=== PATIENT | female | born 1995 ===

== ENCOUNTER 2017-01-30 09:55 | Observation (INO) | payer MEDICAID ==
[2017-01-30 10:03] VITALS: BP 135/107; PULSE 118; RESP 18; TEMP 97.9; O2SAT 97
[2017-01-30 13:12] LABS: % IMMATURE GRANULYOCYTES 0.3 % (0.0-1.1); ABSOLUTE IMMATURE GRANULOCYTES 0.03 10^3/uL (0.00-0.10); ADD DIFF? NO; ADD MORPH? NO; ADD SCAN? NO; ATYPICAL LYMPHOCYTE FLAG 10 (0-99); FRAGMENT RBC FLAG 0 (0-99); HEMATOCRIT 31.7 % (38.0-47.0); HEMOGLOBIN 10.5 g/dL (12.6-16.3); LEFT SHIFT FLG 0 (0-99); LIPEMIA HEMOLYSIS FLAG 80 (0-99); MEAN CELL HEMOGLOBIN 26.5 pg (27.9-34.1); MEAN CELL HEMOGLOBIN CONCENTR. 33.1 g/dL (32.4-36.7); MEAN CELL VOLUME 80.1 fL (81.5-99.8); PLATELET CLUMPS FLAG 0 (0-99); PLATELET COUNT 251 10^3/uL (150-400); RED BLOOD CELL COUNT 3.96 10^6/uL (4.18-5.33); RED CELL DISTRIBUTION WIDTH 15.6 % (11.5-15.2)
[2017-01-30 13:22] LABS: COLOR YELLOW; LEUKOCYTE ESTERASE,URINE 1+ (NEGATIVE); NITRITE,URINE POSITIVE (NEGATIVE)
[2017-01-30 13:27] LABS: BACTERIA 2+ /hpf (NONE SEEN); MUCUS 1+ /lpf (NONE-1+); RBC,URINE 15-25 /hpf (0-3); WBC,URINE 50-182 /hpf (0-3)
[2017-01-30] MEDS ORDERED: ACETAMINOPHEN 500 MG TAB PO ONE (13:30)
[2017-01-30] MEDS ORDERED: NITROFURANTOIN MACROBID 100 MG CAP PO SCH ×2 (13:30→21:00)
--- NOTE | 2017-01-30 14:16 | GHP ---
DATE OF ADMISSION: 01/30/2017 ADMITTING DIAGNOSES: 1. Intrauterine at 37 and 3/7 weeks. 2. No care in this . 3. Right lower quadrant pain. 4. Urinary tract infection. HISTORY OF PRESENT ILLNESS: The patient is a 21-year-old, 3, para 2-0-0 -2 with a ? LMP of 05/13/2016, with an estimated due date of 02/17/2017 at 37 weeks and 3 days. The patient has no care, but did present to the emergency room today with complaints of worsening right lower quadrant pain, as well as a foul odor when she urinates, urinary frequency and urgency. She has no control of her bladder. Denies any dysuria, denies any fevers or chills. Right lower quadrant pain does not radiate and is throbbing. The patient does have some nausea and vomiting, and endorses a headache. Patient denies any leakage of fluid, abnormal discharge or vaginal bleeding. Denies any menstrual type cramping or contractions, and states there is good movement. PAST OBSTETRICAL HISTORY: Two unremarkable vaginal deliveries, both with no care, in 2013 in [place], and then 2014 in [place]. Denies any complications during pregnancies or thereafter. [employer] HISTORY: Menarche age 11. Cycles are regular. The patient denies any abnormal Pap smears or any exposure to sexually transmitted diseases. PAST MEDICAL HISTORY: Remarkable for nasal polyps. PAST SURGICAL HISTORY: Nasal surgery. ALLERGIES: No known drug allergies. MEDICATIONS: None. FAMILY HISTORY: Noncontributory. SOCIAL HISTORY: Patient is . Lives with her and her 2 daughters. She denies any alcohol, tobacco or illicit drug use. LABS: UA showed positive nitrites, positive leukocyte esterase. labs are all pending at this time. An official ultrasound is pending as well for dating, growth and fluid check. PHYSICAL EXAMINATION: Vital signs are stable with BP 91/50. HR 86. Respirations 18.Temp 36.8. GENERAL: On admission, the patient is a well-nourished, well- developed female, alert and oriented x3. No apparent distress, but she does not feel well. HEART: Regular rate, rhythm. LUNGS: Clear to auscultation. ABDOMEN: Soft. There is some tenderness in the right lower quadrant. Nondistended, active bowel sounds, gravid. No CVA tenderness. EXTREMITIES: Normal to inspection without swelling or calf tenderness. PELVIC: Deferred. On [place], there is a Category I strip. Baseline of 130 beats per minute. Positive accelerations, no decelerations, moderate variability. ASSESSMENT: This is a 21-year-old, 3, para 2-0-0-2 at 37 and 3 weeks by ? LMP 05/13/2016 with JAMIA of 02/17/2017, who presents to the emergency department with no care, with complaints of right lower quadrant pain, and a urinary tract infection. PLAN: Will treat UTI with antibiotics, Macrobid; a prescription was given with instructions. Encouraged to complete full course of antibiotics. Increase p.o. fluids, try cranberry juice/tablets, as well as AZO for symptomatic relief. I will review initial labs when they are available, and will review ultrasound when available. Recommend patient establish care and be seen in the next few days. Patient was given my office phone number and address. Stressed the importance of treating for bladder infection secondary to risk of contractions, as well as delivery. The patient does understand risks, states she will complete a full course of antibiotics, and will follow up. She is being discharged home in stable condition. /[id number]/MODL MTDD
== END 2017-01-30 14:00 | disposition home or self-care (01) ==
LOC: FLD 10:17 → EDSTATUS 10:27
PROVIDERS: ADMIT Obstetrics & Gynecology; ATTEND Obstetrics & Gynecology
DX: O23.43 Unspecified infection of urinary tract in pregnancy, third trimester (principal); O09.33 Supervision of pregnancy with insufficient antenatal care, third trimester; Z3A.37 37 weeks gestation of pregnancy
CPT/HCPCS: 76811; 76820; G0378